=== PATIENT | female | born 1970 | race Caucasian/White ===

== ENCOUNTER 2018-05-11 16:06 | Emergency (ER) | payer MEDICARE, MEDICAID ==
[~2018-05-11] VITALS: Ht 154.9 cm; Wt 47.8 kg
[~2018-05-11 16:06] MED LIST: AMOX500C2 PO; CA C1TAB91 PO; DOCU100C38 PO; LORA-641 PO; MIANS NS; MULT-1085 PO; PSYL PO
[2018-05-11 16:16] VITALS: BP 120/74
[2018-05-11] MEDS ORDERED: SULF1TAB49 PO (19:02)
[2018-05-11] MEDS ORDERED: CEPH500C5 PO (19:02)
== END 2018-05-11 19:19 | disposition home or self-care (01) ==
LOC: ER 16:07
DX: L02.11 Cutaneous abscess of neck (principal); L03.221 Cellulitis of neck; F03.90 Unspecified dementia, unspecified severity, without behavioral disturbance, psychotic disturbance, mood disturbance, and anxiety; Z91.013 Allergy to seafood; Z79.2 Long term (current) use of antibiotics; Z79.899 Other long term (current) drug therapy
CPT/HCPCS: 99283

== ENCOUNTER 2022-07-27 10:59 | Emergency (ER) | payer MEDICARE, MEDICAID ==
[~2022-07-27] VITALS: Ht 149.9 cm; Wt 49.0 kg
[2022-07-27 12:51] LABS: BASOPHILS # (AUTO) 0.1 X10'3 (0-0.2); BASOPHILS % (AUTO) 0.7 % (0-1); EOSINOPHILS # (AUTO) 0.3 X10'3 (0-0.9); EOSINOPHILS % (AUTO) 3.6 % (0-6); HEMATOCRIT 39.7 % (35.0-45.0); HEMOGLOBIN 13.5 g/dl (12.0-16.0); LYMPHOCYTES # (AUTO) 1.5 X10'3 (1.1-4.8); LYMPHOCYTES % (AUTO) 15.7 % (21-51); MEAN CORPUSCULAR HEMOGLOBIN 30.8 PG (27.0-31.0); MEAN CORPUSCULAR HGB CONC 33.9 g/dL (33.0-36.5); MEAN CORPUSCULAR VOLUME 90.7 FL (78-98); MEAN PLATELET VOLUME 6.5 FL (7.4-10.4); MONOCYTES # (AUTO) 0.9 X10'3 (0-0.9); MONOCYTES % (AUTO) 9.6 % (2-12); NEUTROPHILS # (AUTO) 6.8 X10'3 (1.8-7.7); NEUTROPHILS % (AUTO) 70.4 % (42-75); PLATELET COUNT 276 X10'3 (140-440); RED BLOOD COUNT 4.37 X10'6 (4.20-5.60); RED CELL DISTRIBUTION WIDTH 13.1 % (11.5-14.5); WHITE BLOOD COUNT 9.7 X10'3 (4.5-11.0)
[2022-07-27 12:59] LABS: ALANINE AMINOTRANSFERASE 21 U/L (12-78); ALBUMIN 3.7 G/DL (3.4-5.0); ALBUMIN/GLOBULIN RATIO 1.1 (1.1-1.5); ALKALINE PHOSPHATASE 108 IU/L (46-116); ANION GAP 5 (8-16); ASPARTATE AMINO TRANSFERASE 17 U/L (10-37); BILIRUBIN,TOTAL 0.4 MG/DL (0.1-1.0); BLOOD UREA NITROGEN 18 MG/DL (7-18); BUN/CREATININE RATIO 32.1 (6.6-38.0); CALCIUM 9.8 MG/DL (8.5-10.1); CHLORIDE 102 MMOL/L (99-107); CREATININE 0.56 MG/DL (0.40-0.90); GLUCOSE 87 MG/DL (70-104); POTASSIUM 4.3 MMOL/L (3.5-5.1); SODIUM 137 MMOL/L (135-145); TOTAL CARBON DIOXIDE 30.4 MMOL/L (24-32); eGFR > 90 ML/MIN
[2022-07-27] MEDS ORDERED: LIDOcaine 1% W/epiNEPHrine 1:100,000 20ml vial SQ ONE (14:15)
[2022-07-27] MEDS ORDERED: LIDOcaine 1% w/EPI 1:100,000 30ml vial (MDV) SQ ONE (14:20)
[2022-07-27] MEDS ORDERED: acetaminophen 325mg tablet PO ONE (14:55)
[2022-07-27] MEDS ORDERED: AMOX-419 PO (14:55)
[2022-07-27] MEDS ORDERED: diphenhydrAMINE 25mg capsule PO ONE (14:55)
[2022-07-27] MEDS ORDERED: amox tr/potassium clavulanate 500mg/125mg TAB PO ONE (14:55)
[2022-07-27 15:02] VITALS: BP 129/80
== END 2022-07-27 15:03 | disposition home or self-care (01) ==
LOC: ER 11:00
DX: L02.01 Cutaneous abscess of face (principal); Z88.8 Allergy status to other drugs, medicaments and biological substances; Z91.013 Allergy to seafood; Z79.2 Long term (current) use of antibiotics; Z79.899 Other long term (current) drug therapy
CPT/HCPCS: 10060; 36415; 80053; 85025; 87070; 87077; 87186; 99284; Q0163; A6449